=== PATIENT | female | born 1955 | race Caucasian/White ===

== ENCOUNTER 2016-12-16 08:17 | Emergency (ER) | payer BC | END 2016-12-16 10:05 | disposition home or self-care (01) | LOC: ER 08:17 | DX: M25.551 Pain in right hip (principal); F41.9 Anxiety disorder, unspecified; Z88.1 Allergy status to other antibiotic agents; Z88.8 Allergy status to other drugs, medicaments and biological substances; X58.XXXA Exposure to other specified factors, initial encounter | CPT/HCPCS: 73502-RT; 96374; 99283; J2405 ==